=== PATIENT | female | born 1970 | race Two or more races ===

== ENCOUNTER 2017-10-24 11:00 | Day surgery (SDC) | payer OTHER | END 2017-10-24 18:25 | disposition home or self-care (01) | LOC: CIR.AMB 11:00 | DX: N84.0 Polyp of corpus uteri (principal) ==

== ENCOUNTER 2017-10-29 09:46 | Outpatient (CLI) | payer OTHER | END 2017-10-29 10:01 | disposition home or self-care (01) | LOC: MAMO-SONO 09:46 | DX: Z12.31 Encounter for screening mammogram for malignant neoplasm of breast (principal); N60.11 Diffuse cystic mastopathy of right breast ==

== ENCOUNTER 2017-11-06 10:54 | Outpatient (CLI) | payer OTHER | END 2017-11-06 11:08 | disposition home or self-care (01) | LOC: SONOGRAMA 10:54 | DX: N60.12 Diffuse cystic mastopathy of left breast (principal) ==

== ENCOUNTER 2019-05-19 12:38 | Outpatient (CLI) | payer OTHER | END 2019-05-19 16:21 | disposition home or self-care (01) | LOC: MAMO-SONO 12:38 | DX: N60.11 Diffuse cystic mastopathy of right breast (principal); R10.11 Right upper quadrant pain; Z12.31 Encounter for screening mammogram for malignant neoplasm of breast; Z87.898 Personal history of other specified conditions ==